=== PATIENT | female | born 2000 | race Caucasian/White ===

== ENCOUNTER 2022-09-10 06:30 | Emergency (ER) | payer OTHER ==
[~2022-09-10] VITALS: Ht 157.5 cm; Wt 77.1 kg
[2022-09-10 06:39] VITALS: BP 121/64
--- NOTE | 2022-09-10 07:11 | NUR ---
PT RETURN FROM RADIOLOGY
[2022-09-10] MEDS ORDERED: IBUP-2213 PO (07:50)
--- NOTE | 2022-09-10 08:21 | NUR ---
Patient discharged with v/s stable. Written and verbal after care instructions given and explained to patient . Patient verbalized understanding. Ambulatorysteady gait. All questions addressed prior to discharge. Advised to follow up with PMD.
== END 2022-09-10 08:21 | disposition home or self-care (01) ==
LOC: MED 06:30
DX: S93.401A Sprain of unspecified ligament of right ankle, initial encounter (principal); X58.XXXA Exposure to other specified factors, initial encounter; Y93.89 Activity, other specified; Y92.89 Other specified places as the place of occurrence of the external cause; Y99.8 Other external cause status
CPT/HCPCS: 73610; 99283